=== PATIENT | male | born 1930 | race Hispanic/Latino ===

== ENCOUNTER 2018-03-20 13:26 | Emergency (ER) | payer MEDICARE, OTHER ==
[2018-03-20 14:31] LABS: APPEARANCE,URINE Clear (CLEAR); BILIRUBIN,URINE Negative (NEGATIVE); COLOR,URINE Yellow (YELLOW); GLUCOSE, URINE (UA) Negative (NEGATIVE); KETONES,URINE Negative (NEGATIVE); LEUKOCYTE ESTERASE ,URINE Negative (NEGATIVE); NITRATE,URINE Negative (NEGATIVE); OCCULT BLOOD,URINE Negative (NEGATIVE); PROTEIN,URINE POS 2+ (NEGATIVE); UROBILINOGEN,URINE 0.2 mg/dL (0.2-1.0)
[2018-03-20 14:57] LABS: BACTERIA,URINE Rare /HPF (None Seen); RBC,URINE 0-1 /HPF (0-1); SQUAMOUS EPITHELIAL CELL,UR Rare /HPF (0-2)
== END 2018-03-20 16:07 | disposition home or self-care (01) ==
LOC: EDH 13:26
DX: I86.1 Scrotal varices (principal); I10 Essential (primary) hypertension; E11.9 Type 2 diabetes mellitus without complications; E78.5 Hyperlipidemia, unspecified; Z87.891 Personal history of nicotine dependence
CPT/HCPCS: 76870; 81001

== ENCOUNTER → 2018-04-10 | Outpatient (CLI) | payer OTHER | END | disposition home or self-care (01) | LOC: RAH 14:07 | PROVIDERS: ATTEND Internal Medicine Cardiovascular Disease | DX: Z13.6 Encounter for screening for cardiovascular disorders (principal) | CPT/HCPCS: 75571 ==

== ENCOUNTER 2018-04-22 19:29 | Emergency (ER) | payer OTHER | END 2018-04-22 20:24 | disposition home or self-care (01) | LOC: EDH 19:29 | DX: S51.802A Unspecified open wound of left forearm, initial encounter (principal); S41.102A Unspecified open wound of left upper arm, initial encounter; E11.9 Type 2 diabetes mellitus without complications; E78.5 Hyperlipidemia, unspecified; I10 Essential (primary) hypertension; W18.39XA Other fall on same level, initial encounter; Y93.89 Activity, other specified; Y92.89 Other specified places as the place of occurrence of the external cause; Y99.8 Other external cause status | CPT/HCPCS: 97597 ==

== ENCOUNTER 2021-10-22 10:30 | Emergency (ER) | payer OTHER ==
[~2021-10-22] VITALS: Ht 172.7 cm; Wt 93.0 kg
[~2021-10-22 10:30] MED LIST: ASPI-1012 PO; ATOR20TA65 PO; DILT120T15 PO; HYDR-4457 PO; MULT-1203 PO; RANI150C4 PO
[2021-10-22 12:29] LABS: BASOPHILS % (AUTO) 0.4 % (0.0-5.0); EOSINOPHILS % (AUTO) 2.7 % (0.0-8.0); HEMATOCRIT 41.4 % (42-54); LYMPHOCYTES % (AUTO) 22.1 % (21.0-51.0); MEAN CORPUSCULAR HEMOGLOBIN 30.2 pg (27.0-33.0); MEAN CORPUSCULAR HGB CONC 33.3 g/dL (32.0-36.0); MEAN CORPUSCULAR VOLUME 90.6 fL (79-99); MONOCYTES % (AUTO) 7.9 % (3.0-13.0); NEUTROPHILS % (AUTO) 66.6 % (40.0-77.0); PLATELET COUNT (AUTO) 238 K/uL (130-400); RED BLOOD CELL COUNT(AUTO) 4.57 MIL/uL (4.50-6.20); RED CELL DISTRIBUTION WIDTH 13.8 % (11.0-15.5); WHITE BLOOD COUNT (AUTO) 7.1 K/uL (4.8-10.8)
[2021-10-22] MEDS ORDERED: GUAIFENESIN-DM 200/20 MG 10 ML PO ONE (12:30)
[2021-10-22] MEDS ORDERED: ACETAMINOPHEN 500 MG TABLET PO ONE (12:30)
[2021-10-22 12:41] LABS: ALBUMIN 3.8 g/dL (3.5-5.0); CREATININE 3.1 mg/dL (0.5-1.5); POTASSIUM 5.1 mmol/L (3.5-5.1); TOTAL PROTEIN, SERUM 7.4 g/dL (6.0-8.3)
[2021-10-22 12:54] LABS: B-TYPE NATRIURETIC PEPTIDE 149 pg/mL (0-100)
[2021-10-22 13:13] LABS: APPEARANCE,URINE CLEAR (CLEAR); BILIRUBIN,URINE NEGATIVE (NEGATIVE); COLOR,URINE YELLOW (YELLOW); GLUCOSE, URINE (UA) NEGATIVE (NEGATIVE); KETONES,URINE NEGATIVE (NEGATIVE); LEUKOCYTE ESTERASE ,URINE TRACE (NEGATIVE); NITRATE,URINE NEGATIVE (NEGATIVE); OCCULT BLOOD,URINE TRACE-INTACT (NEGATIVE); PH,URINE 6.5 (5.0-8.0); PROTEIN,URINE TRACE mg/dL (NEGATIVE); UROBILINOGEN,URINE 0.2 mg/dL (0.2-1.0)
[2021-10-22 13:15] VITALS: BP 137/79
[2021-10-22] MEDS ORDERED: CODE10LI PO (13:17)
[2021-10-22 13:18] LABS: BACTERIA,URINE Rare /HPF (None Seen); RBC,URINE 0-1 /HPF (0-1); SQUAMOUS EPITHELIAL CELL,UR Rare /HPF (0-2); WBC,URINE 0-1 /HPF (0-1)
== END 2021-10-22 13:23 | disposition home or self-care (01) ==
LOC: EDH 10:30
DX: J06.9 Acute upper respiratory infection, unspecified (principal); N28.9 Disorder of kidney and ureter, unspecified; I10 Essential (primary) hypertension; Z20.822 Contact with and (suspected) exposure to COVID-19; E78.00 Pure hypercholesterolemia, unspecified; Z79.82 Long term (current) use of aspirin
CPT/HCPCS: 99285; 71045; 87635; 83735; 84484; 80053; 83880; 85025; 87804 ×2; 36415; 81001; 93005; C9803

== ENCOUNTER 2021-11-01 20:20 | Emergency (ER) | payer OTHER ==
[~2021-11-01] VITALS: Ht 165.1 cm; Wt 88.9 kg
[~2021-11-01 20:20] MED LIST changes: +CODE10LI PO
[2021-11-01] MEDS ORDERED: TAMSULOSIN HCL 0.4 MG CAP.ER.24H PO SCH (21:00)
[2021-11-01 21:02] LABS: BASOPHILS % (AUTO) 0.2 % (0.0-5.0); EOSINOPHILS % (AUTO) 1.1 % (0.0-8.0); HEMATOCRIT 42.1 % (42-54); LYMPHOCYTES % (AUTO) 27.8 % (21.0-51.0); MEAN CORPUSCULAR HEMOGLOBIN 30.6 pg (27.0-33.0); NEUTROPHILS % (AUTO) 62.2 % (40.0-77.0); PLATELET COUNT (AUTO) 263 K/uL (130-400); RED BLOOD CELL COUNT(AUTO) 4.68 MIL/uL (4.50-6.20); RED CELL DISTRIBUTION WIDTH 13.6 % (11.0-15.5); WHITE BLOOD COUNT (AUTO) 9.1 K/uL (4.8-10.8)
[2021-11-01 21:03] LABS: APPEARANCE,URINE CLEAR (CLEAR); BILIRUBIN,URINE NEGATIVE (NEGATIVE); COLOR,URINE YELLOW (YELLOW); GLUCOSE, URINE (UA) NEGATIVE (NEGATIVE); KETONES,URINE NEGATIVE (NEGATIVE); LEUKOCYTE ESTERASE ,URINE MODERATE (NEGATIVE); NITRATE,URINE NEGATIVE (NEGATIVE); OCCULT BLOOD,URINE MODERATE (NEGATIVE); PROTEIN,URINE 100 mg/dL (NEGATIVE); UROBILINOGEN,URINE 0.2 mg/dL (0.2-1.0)
[2021-11-01 21:11] LABS: CREATININE 3.3 mg/dL (0.5-1.5); POTASSIUM 4.3 mmol/L (3.5-5.1)
[2021-11-01 21:15] LABS: ALBUMIN 3.6 g/dL (3.5-5.0); TOTAL PROTEIN, SERUM 7.5 g/dL (6.0-8.3)
[2021-11-01 21:27] LABS: BACTERIA,URINE Few /HPF (None Seen); SQUAMOUS EPITHELIAL CELL,UR Rare /HPF (0-2)
[2021-11-01] MEDS ORDERED: TAMS-1 PO (21:29)
[2021-11-01] MEDS ORDERED: SULF1TAB42 PO (21:29)
[2021-11-01] MEDS ORDERED: CEFTRIAXONE 1G VIAL IVP ONE (21:30)
[2021-11-01 21:39] VITALS: BP 137/71
== END 2021-11-01 21:44 | disposition home or self-care (01) ==
LOC: EDH 20:20
DX: N39.0 Urinary tract infection, site not specified (principal); R33.9 Retention of urine, unspecified; N28.9 Disorder of kidney and ureter, unspecified; E78.00 Pure hypercholesterolemia, unspecified; I10 Essential (primary) hypertension; Z79.82 Long term (current) use of aspirin
CPT/HCPCS: 99284; 96374; 80053; 87077; 85025; 87088; 87186; 81001; 36415; 51702; J0696